=== PATIENT | male | born 1945 ===

== ENCOUNTER 2019-10-24 14:52 | Inpatient (IN) | payer OTHER, MEDICARE ==
[~2019-10-24] VITALS: Ht 172.7 cm; Wt 65.9 kg
[2019-10-24] MEDS ORDERED: pantoprazole 40 MG vial IV ONE (15:15)
[2019-10-24] MEDS ORDERED: normal saline 1000ML IV soln IVB ONE ×2 (15:15→15:40)
[2019-10-24 15:37] LABS: BASOPHILS # (AUTO) 0.1 X10'3 (0-0.2); BASOPHILS % (AUTO) 1.2 % (0-1); EOSINOPHILS # (AUTO) 0.1 X10'3 (0-0.9); HEMATOCRIT 30.5 % (42.0-52.0); HEMOGLOBIN 9.9 g/dl (14.0-17.9); LYMPHOCYTES # (AUTO) 1.6 X10'3 (1.1-4.8); LYMPHOCYTES % (AUTO) 21.9 % (21-51); MEAN CORPUSCULAR HEMOGLOBIN 28.1 PG (27.0-31.0); MEAN CORPUSCULAR HGB CONC 32.5 g/dL (33.0-36.5); MEAN CORPUSCULAR VOLUME 86.4 FL (78-98); MEAN PLATELET VOLUME 9.5 FL (7.4-10.4); MONOCYTES # (AUTO) 0.5 X10'3 (0-0.9); MONOCYTES % (AUTO) 6.8 % (2-12); NEUTROPHILS # (AUTO) 4.9 X10'3 (1.8-7.7); NEUTROPHILS % (AUTO) 69.1 % (42-75); PLATELET COUNT 168 X10'3 (140-440); RED BLOOD COUNT 3.53 X10'6 (4.70-6.10); RED CELL DISTRIBUTION WIDTH 14.9 % (11.5-14.5); WHITE BLOOD COUNT 7.1 X10'3 (4.5-11.0)
[2019-10-24] MEDS ORDERED: NO HOME MEDS (15:45)
[2019-10-24] MEDS: pantoprazole 40MG/NS 100ML BAG 100 ML IV SCH ×2 (15:48→20:59)
[2019-10-24 15:50] LABS: PARTIAL THROMBOPLASTIN TIME 29 SECONDS (22-32)
[2019-10-24 15:56] LABS: ALANINE AMINOTRANSFERASE 14 U/L (12-78); ALBUMIN 2.9 G/DL (3.4-5.0); ALBUMIN/GLOBULIN RATIO 0.6 (1.1-1.5); ALKALINE PHOSPHATASE 85 IU/L (46-116); ANION GAP 10 (8-16); ASPARTATE AMINO TRANSFERASE 29 U/L (10-37); BLOOD UREA NITROGEN 10 MG/DL (7-18); BUN/CREATININE RATIO 6.8 (5.4-32.0); CALCIUM 8.5 MG/DL (8.5-10.1); CHLORIDE 103 MMOL/L (99-107); CREATININE 1.46 MG/DL (0.60-1.10); POTASSIUM 3.5 MMOL/L (3.5-5.1); SODIUM 137 MMOL/L (135-145); TOTAL CARBON DIOXIDE 24.1 MMOL/L (24-32); TOTAL PROTEIN 8.1 G/DL (6.4-8.2); eGFR 47 ML/MIN
[2019-10-24 15:58] LABS: GLUCOSE 127 MG/DL (70-104)
[2019-10-24 16:13] LABS: ETHANOL < 0.010 GM/DL (0.0-0.010)
[2019-10-24] MEDS ORDERED: potassium CL 10mEq/100ml bag 100 ML IV PRN ×2 (17:20)
[2019-10-24] MEDS ORDERED: magnesium Cl slow-release 64mg tablet PO PRN (17:20)
[2019-10-24] MEDS ORDERED: LORazepam 2 mg/ml vial IV PRN (17:20)
[2019-10-24] MEDS ORDERED: LORazepam 1 MG tablet PO PRN (17:20)
[2019-10-24] MEDS ORDERED: magnesium 4gm in 100ml NS 100 ML IV PRN (17:20)
[2019-10-24] MEDS ORDERED: acetaminophen 325mg tablet PO PRN ×2 (17:20)
[2019-10-24] MEDS ORDERED: potassium Cl 20 mEq SR tablet PO PRN ×2 (17:20)
[2019-10-24] MEDS ORDERED: ondansetron/PF 4mg/2ml inj IV PRN (17:20)
[2019-10-24] MEDS ORDERED: HYDROcodone/acetaminophen 5mg/325mg tablet PO PRN (17:20)
[2019-10-24] MEDS ORDERED: magnesium 2GM in 50ml NS 50 ML IV PRN (17:20)
[2019-10-24] MEDS ORDERED: morphine 2 MG/ML inj. syringe IV PRN (17:20)
[2019-10-24] MEDS: normal saline 1000ml 1,000 ML IV SCH (17:40)
[2019-10-24 17:53] LABS: CLARITY,URINE CLEAR (Clear); COLOR,URINE YELLOW (Yellow); GLUCOSE, URINE NEGATIVE (Neg); KETONES,URINE NEGATIVE (Neg); LEUKOCYTE ESTERASE ,URINE NEGATIVE (Neg); NITRITES, URINE NEGATIVE (Neg); OCCULT BLOOD,URINE NEGATIVE (Neg); PH,URINE 6.5 (4.8-8.0); PROTEIN,URINE NEGATIVE (Neg)
[2019-10-24 17:54] LABS: UA COLLECTION TYPE URINAL
[2019-10-24 18:06] LABS: URINE AMPHETAMINE SCREEN NEGATIVE (Neg); URINE BARBITUATE SCREEN NEGATIVE (Neg); URINE BENZODIAZEPINES SCREEN NEGATIVE (Neg); URINE CANNABINOID SCREEN POSITIVE (Neg); URINE COCAINE SCREEN NEGATIVE (Neg); URINE METHADONE SCREEN NEGATIVE (Neg); URINE OPIATE SCREEN NEGATIVE (Neg); URINE PHENCYCLIDINE SCREEN NEGATIVE (Neg)
--- NOTE | 2019-10-24 19:20 | NUR ---
Patient came up to floor via wheelchair. Patient transferred to bed stand by. IV fluids running per MD orders. Bed in low and locked position. Call light placed within reach.
[2019-10-24 19:30] VITALS: BP 139/72
[2019-10-24] MEDS ORDERED: K and/or MAG REPLACEMENT MC SCH (20:00)
[2019-10-24] MEDS ORDERED: temazepam 15mg capsule PO PRN (21:00)
[2019-10-24] MEDS ORDERED: pantoprazole 40MG/NS 100ML BAG 100 ML IV SCH (21:00)
--- NOTE | 2019-10-24 22:00 | NUR ---
Patient got a dog bite on his right hand 2 weeks ago. Patient says he had a plastic surgeon try to fix his hand but may need a graft. I unwrapped the wound and cleaned with NS. Pictures taken and placed in the chart. Rewrapped wound and placed a wound consult.
[2019-10-25] VITALS (10 sets, daily range): BP systolic 90–142; BP diastolic 40–80
[2019-10-25] MEDS: pantoprazole 40MG/NS 100ML BAG 100 ML IV SCH ×2 (01:26→05:42)
[2019-10-25] MEDS: normal saline 1000ml 1,000 ML IV SCH (02:54)
[2019-10-25 06:20] LABS: OCCULT BLOOD STOOL NEGATIVE (Neg)
--- NOTE | 2019-10-25 06:23 | NUR ---
Problems reprioritized. Patient report given, questions answered & plan of care reviewed with Meryl ARIZMENDI.
[2019-10-25 06:30] LABS: BASOPHILS # (AUTO) 0.1 X10'3 (0-0.2); EOSINOPHILS # (AUTO) 0.1 X10'3 (0-0.9); EOSINOPHILS % (AUTO) 1.5 % (0-6); HEMATOCRIT 22.6 % (42.0-52.0); HEMOGLOBIN 7.4 g/dl (14.0-17.9); LYMPHOCYTES # (AUTO) 1.3 X10'3 (1.1-4.8); LYMPHOCYTES % (AUTO) 25.8 % (21-51); MEAN CORPUSCULAR HEMOGLOBIN 27.9 PG (27.0-31.0); MEAN CORPUSCULAR HGB CONC 32.5 g/dL (33.0-36.5); MEAN CORPUSCULAR VOLUME 85.7 FL (78-98); MEAN PLATELET VOLUME 9.4 FL (7.4-10.4); MONOCYTES # (AUTO) 0.4 X10'3 (0-0.9); MONOCYTES % (AUTO) 7.6 % (2-12); NEUTROPHILS # (AUTO) 3.3 X10'3 (1.8-7.7); NEUTROPHILS % (AUTO) 64.1 % (42-75); PLATELET COUNT 96 X10'3 (140-440); RED BLOOD COUNT 2.64 X10'6 (4.70-6.10); RED CELL DISTRIBUTION WIDTH 14.7 % (11.5-14.5); WHITE BLOOD COUNT 5.2 X10'3 (4.5-11.0)
[2019-10-25 06:43] LABS: ALANINE AMINOTRANSFERASE 14 U/L (12-78); ALBUMIN 2.2 G/DL (3.4-5.0); ALBUMIN/GLOBULIN RATIO 0.5 (1.1-1.5); ALKALINE PHOSPHATASE 64 IU/L (46-116); ANION GAP 8 (8-16); ASPARTATE AMINO TRANSFERASE 21 U/L (10-37); BLOOD UREA NITROGEN 13 MG/DL (7-18); BUN/CREATININE RATIO 12.3 (5.4-32.0); CALCIUM 7.5 MG/DL (8.5-10.1); CHLORIDE 111 MMOL/L (99-107); CREATININE 1.06 MG/DL (0.60-1.10); MAGNESIUM 1.9 MG/DL (1.5-2.4); POTASSIUM 3.8 MMOL/L (3.5-5.1); SODIUM 142 MMOL/L (135-145); TOTAL CARBON DIOXIDE 23.3 MMOL/L (24-32); TOTAL PROTEIN 6.4 G/DL (6.4-8.2); eGFR 69 ML/MIN
--- NOTE | 2019-10-25 06:43 | NUR ---
Patient in room [facility]. I have received report from Esthela ARIZMENDI and had the opportunity to ask questions and assume patient care.
[2019-10-25 06:47] LABS: GLUCOSE 89 MG/DL (70-104)
[2019-10-25] MEDS ORDERED: fentaNYL/PF 50MCG/1 ML 2ML syringe ONE (07:13)
[2019-10-25] MEDS ORDERED: LIDOcaine Viscous 15ml cup ONE (07:13)
[2019-10-25] MEDS ORDERED: MIDAZolam 5mg/5ml vial ONE (07:13)
[2019-10-25] MEDS ORDERED: OCTREOTIDE 1,250 MCG in NS 250ml IV.SOLN IV SCH (08:35)
--- NOTE | 2019-10-25 10:21 | NUR ---
Patient has been stating he wanted to leave for the past 1/2 hour. Patient maybe having etoh withdrawals but he dose not believe it and dose not want to take anything. I paged Dr. Martínez. Myself and the GI nurse talked to the patient and educated him extensively about the risks if he leaves now. The patient seems agitated and accusing us of accusing him of things that he's going to do when he gets home "drink excessively and eat like a pig" he said. After much debate and education to patient said he doesn't care if he dies tomorrow because he has ruddy. I had him sign ama and removed IV. I told him to call 911 or come to ED with any concerns.
--- NOTE | 2019-10-25 10:44 | NUR ---
PAGER ID: [phone] MESSAGE: Patient Ceasar Dominguez left ama after banding procedure for esophagus. Meryl [phone] (77 character message out of a maximum of [phone]) Paged Dr. Blood ,it is not Dr. Martínez today
== END 2019-10-25 10:42 | disposition left against medical advice (07) | DRG 369 ==
LOC: ER 14:52 → ED HOLD 17:16 → SUR 3N 19:20
PROVIDERS: ADMIT Internal Medicine; ATTEND Internal Medicine
PROC: 06L38CZ Occlusion of Esophageal Vein with Extraluminal Device, Via Natural or Artificial Opening Endoscopic (ICD-10-PCS; principal; 2019-10-25)
PROC: 0DB68ZX Excision of Stomach, Via Natural or Artificial Opening Endoscopic, Diagnostic (ICD-10-PCS; 2019-10-25)
DX: I85.01 Esophageal varices with bleeding (principal); D62 Acute posthemorrhagic anemia; F10.10 Alcohol abuse, uncomplicated; F12.90 Cannabis use, unspecified, uncomplicated; I10 Essential (primary) hypertension; F19.10 Other psychoactive substance abuse, uncomplicated; I95.9 Hypotension, unspecified
CPT/HCPCS: 36415; 43239; 43244; 71045; 80053; 80305; 80320; 81003; 82272; 83605; 83735; 84145; 85025; 85610; 85730; 86885; 86900; 86901; 86920; 87040; 87081; 93005; 96361; 96374; 99152; 99291; A4620; C9113; G0378; J2250; J3010; J7030; J7040